=== PATIENT | female | born 1960 | race Caucasian/White ===

== ENCOUNTER 2021-05-03 14:52 | Emergency (ER) | payer BC, OTHER ==
[2021-05-03 15:16] VITALS: PULSE 65; TEMP 98.8; BMI 33.2
[2021-05-03] MEDS ORDERED: LABETALOL HCL 200 MG TABLET (FP) PO ONE (17:44)
[2021-05-03] MEDS ORDERED: LABETALOL HCL 100 MG TABLET (FP) ONE (17:47)
[2021-05-03 18:03] LABS: BASO % 0.7 % (0-2.0); EOS % 1.3 % (0-4.5); HEMATOCRIT 37.5 % (32.4-45.2); HEMOGLOBIN 12.5 GM/dL (10.7-15.3); LYMPH % 22.7 % (8-40); MCH 29.3 pg (25.7-33.7); MCHC 33.2 g/dl (32.0-36.0); MEAN PLT VOLUME 10.6 fl (7.5-11.1); NEUT % 69.3 % (42.8-82.8); PLATELET COUNT 230 10^3/uL (134-434); RBC 4.26 M/mm3 (3.60-5.2); RDW 15.1 % (11.6-15.6); WHITE BLOOD COUNT 10.6 K/mm3 (4.0-10.0)
[2021-05-03 18:24] LABS: CHLORIDE 110 mmol/L (98-107); SODIUM 141 mmol/L (136-145)
[2021-05-03 18:26] LABS: CALCIUM 8.9 mg/dL (8.5-10.1)
[2021-05-03 18:27] LABS: ALBUMIN 3.7 g/dl (3.4-5.0); ANION GAP 5 MMOL/L (8-16); BLOOD UREA NITROGEN 23.4 mg/dL (7-18); CO2 26 mmol/L (21-32); GLUCOSE,RANDOM 88 mg/dL (74-106); MAGNESIUM 2.3 mg/dL (1.8-2.4)
[2021-05-03 18:30] LABS: SGOT/AST 10 U/L (15-37); SGPT/ALT 15 U/L (13-61)
[2021-05-03 18:32] LABS: BILIRUBIN,TOTAL 0.3 mg/dL (0.2-1); TOT PROT 6.7 g/dl (6.4-8.2)
[2021-05-03 18:33] LABS: ALK PHOS 105 U/L (45-117)
[2021-05-03 18:46] VITALS: BP 166/94
== END 2021-05-03 19:33 | disposition home or self-care (01) ==
LOC: JER 14:52
DX: R00.2 Palpitations (principal)
CPT/HCPCS: 36415; 80053; 82550; 83735; 84439; 84443; 84484; 85025; 93005; 93010; 99284-25; C9803; U0003; U0005